=== PATIENT | male | born 1955 | race Caucasian/White ===

== ENCOUNTER 2017-06-10 12:41 | Inpatient (IN) | payer BC ==
[~2017-06-10] VITALS: Ht 170.2 cm; Wt 147.9 kg
[~2017-06-10 12:41] MED LIST: ACETAMINOPHEN-1 EAC3 PO; ACETAMINOPHEN325 M1; AMARYL4 MG PO; ASPIRIN EC325 M1 PO; ASPIRIN325 PO; CLONIDINE HCL0.3 M2 PO; CRESTOR20 MG PO; EFFIENT10 MG PO; ENOXAPARIN30 MG/0.3; EXFORGE PO; FAMOTIDINE PO; FISH OIL 1,0001 EAC5 PO; FLEXERIL PO; FUROSEMIDE 80 M80 M1 PO; GLUCOPHAGE1000 MG PO; HUMALOG MI100 UNIT/3 SQ; HYDROCODON-ACE1 EA11 PO; HYDROCODON-ACE1 EAC7; IBUPROFEN 800800 MG PO; K-DUR 20 MEQ T20 MEQ PO; LEVEMIR; LOVENOX SQ; MEDROL DOSPAK21 TA1 PO; METAMUCIL PAC1 UDPK1; MIRALAX255 GM; MOM; MULTIVITAMINS PO; NIASPAN ER 101000 M1 PO; NOVOLOG100 UNIT/1; OXYCODONE HCL5 M1; POTASSIUM; SPIRONOLACTONE25 M1 PO; TOPROL XL100 MG PO; TOPROL XL50 MG PO; VISTARIL 25 MG25 M1 PO; [UNRECOGNIZED DRUG - REMARK]
[2017-06-10] MEDS ORDERED: NORCO 5-325 TA1 EACH PO (12:53)
[2017-06-10] MEDS ORDERED: SENNA8.6 MG PO (12:55)
[2017-06-10] MEDS ORDERED: TYLENOL PM EX-1 EACH PO (12:57)
[2017-06-10] MEDS ORDERED: LIPITOR80 MG PO (13:02)
[2017-06-10] MEDS ORDERED: COREG25 MG PO (13:03)
[2017-06-10] MEDS ORDERED: FARXIGA10 MG PO (13:05)
[2017-06-10] MEDS ORDERED: CARDIZEM CD240 MG PO (13:28)
[2017-06-10] MEDS ORDERED: TRULICITY1.5 MG/0.5 SUBQ (13:30)
[2017-06-10] MEDS ORDERED: LASIX 40 MG TAB40 M2 PO (13:31)
[2017-06-10] MEDS ORDERED: [UNRECOGNIZED DRUG - OTHER] SUBQ (13:37)
[2017-06-10] MEDS ORDERED: TRESIBA FL100 UNIT/1 SUBQ (13:39)
[2017-06-10] MEDS ORDERED: HUMULINR100 SUBQ (13:44)
[2017-06-10] MEDS ORDERED: METOLAZONE 2.52.5 M1 PO (13:49)
[2017-06-10] MEDS ORDERED: CENTRUM SILVER1 EAC2 PO (13:50)
[2017-06-10] MEDS ORDERED: [UNRECOGNIZED DRUG - CODE] PO (13:53)
[2017-06-10] MEDS ORDERED: OMEGA-31000 M1 PO (13:54)
[2017-06-10] MEDS ORDERED: POTASSIUM20 PO (13:56)
[2017-06-10] MEDS ORDERED: XARELTO20 MG PO (14:00)
[2017-06-10] MEDS ORDERED: ENTRESTO 49 MG1 EACH PO (14:02)
[2017-06-10 14:54] VITALS: BP 121/64
[2017-06-10 20:08] VITALS: BP 101/63
[2017-06-11 05:17] LABS: HEMATOCRIT 38.2 % (42.0-52.0); HEMOGLOBIN 12.8 gm/dL (14.0-18.0); MCH 29.8 pg (26.0-34.0); MCHC 33.6 g/dL (28.0-37.0); MCV 88.6 fL (80.0-100.0); MPV 9.9 fl. (7.2-11.1); RBC 4.31 mil/uL (4.50-6.00); RDW-CV 16.5 % (10.5-14.5); WBC 6.3 thou/uL (4.0-11.0)
[2017-06-11 05:56] LABS: CALCIUM 8.1 mg/dL (8.5-10.1); CREATININE 1.4 mg/dL (0.6-1.3); POTASSIUM 3.8 mmol/L (3.5-5.1)
[2017-06-11 07:30] VITALS: BP 128/73
[2017-06-11 18:03] VITALS: BP 131/56
[2017-06-11 20:00] VITALS: BP 123/71
[2017-06-12 07:53] VITALS: BP 126/71
[2017-06-12 16:51] VITALS: BP 131/60
[2017-06-12 20:00] VITALS: BP 116/58
[2017-06-13 07:30] VITALS: BP 122/49
[2017-06-13 21:01] VITALS: BP 97/55
[2017-06-14 08:25] VITALS: BP 107/74
[2017-06-14 20:57] VITALS: BP 125/60
[2017-06-15 08:18] VITALS: BP 142/68
[2017-06-15 08:21] VITALS: BP 142/68
[2017-06-15 20:00] VITALS: BP 143/62
[2017-06-16 08:34] VITALS: BP 134/66
[2017-06-16 20:04] VITALS: BP 136/60
[2017-06-17 07:51] VITALS: BP 121/62
[2017-06-17 20:04] VITALS: BP 117/59
[2017-06-18 07:46] VITALS: BP 118/57
[2017-06-18 20:12] VITALS: BP 121/63
[2017-06-19 05:06] LABS: HEMOGLOBIN 12.1 gm/dL (14.0-18.0); MCH 29.9 pg (26.0-34.0); MCHC 32.8 g/dL (28.0-37.0); MCV 90.9 fL (80.0-100.0); MPV 9.2 fl. (7.2-11.1); RBC 4.06 mil/uL (4.50-6.00); RDW-CV 16.7 % (10.5-14.5); WBC 5.2 thou/uL (4.0-11.0)
[2017-06-19 05:21] LABS: CREATININE 1.5 mg/dL (0.6-1.3); MAGNESIUM 2.3 mg/dL (1.8-2.4); POTASSIUM 3.9 mmol/L (3.5-5.1)
[2017-06-19 07:30] VITALS: BP 146/72
[2017-06-19 17:14] VITALS: BP 151/70
[2017-06-19 20:09] VITALS: BP 146/80
[2017-06-20 07:55] VITALS: BP 146/77
[2017-06-20 10:54] VITALS: BP 146/77
[2017-06-20] MEDS ORDERED: ENTRESTO 97 MG1 EACH PO (13:41)
[2017-06-20 14:59] VITALS: BP 146/77
[2017-06-20 16:00] VITALS: BP 146/77
--- NOTE | 2017-07-12 13:45 | H ---
[place] [address] HISTORY AND PHYSICAL Name: LEONORA HERNANDEZ Room: [address] M.R.#: [id number] Admission: 06/10/17 Attend Phys: Елена Colbert DO Discharge: 06/20/17 Date of : 51 Report #: [id number] THIS REPORT FOR: //name// CC: Елена Evansriquez DATE OF SERVICE: 06/10/2017 HISTORY OF PRESENT ILLNESS: This is a 61-year-old male who presented to the Emergency Room at the [facility] in [place], [place], status post fall on the ice on to his left side on 06/04/2017. He was unable to bear weight and found to have a left distal periprosthetic femur fracture with history of bilateral total knee replacements. The femur was displaced. Postoperative, he did have some shortness of air. He does have uncontrolled diabetes with a random glucose of 187. He also has an anemia with a hemoglobin of 11.5. His has got morbid obesity with his BMI at 54.2. He has also SUKHJINDER, using CPAP; atrial fibrillation; chronic kidney disease; CHF; and coronary artery disease. His previous level of function was independent with all activities of daily living. His current level of function is minimum to maximum assistance of 1-2 depending on therapy, activity and time of day. He is currently going 50 feet with front-wheeled walker at min assist with toe touch weightbearing on the left side. His comprehension, expression, social interaction, and problem solving are all within normal limits. No significant changes since the preadmission screening. Estimated length of stay is 10-12 days with discharge disposition to the home setting where he lives in a 2 level house, everything is available on the first floor. His spouse is in good health, can help with supervision and minimal assistance. He will likely need PT, OT and detention health. PAST MEDICAL HISTORY: Hypertension; ORAL; diabetes, uncontrolled; morbid obesity with a BMI of 54.2; SUKHJINDER; anemia; congestive heart failure; and coronary artery disease. PAST SURGICAL HISTORY: Appendectomy, bilateral total knee replacements and hernia repair. ALLERGIES: No known drug allergies. MEDICATIONS: Reviewed and reconciled by myself and are available in the MAR. The only change was to increase his Vicodin from 1 every 4 hours to 1-2 every 4 hours as needed for pain in anticipation of 3 hours of therapy. FAMILY HISTORY: Diabetes and heart disease. SOCIAL HISTORY: No tobacco, alcohol [place] [address] HISTORY AND PHYSICAL Name: LEONORA HERNANDEZ Room: [address] IN [facility].#: [id number] Admission: 06/10/17 Attend Phys: Елена Colbert DO Discharge: 06/20/17 Date of : 51 Report #: [id number] REVIEW OF SYSTEMS: A 14-point review of systems is done today, is negative except as mentioned in HPI. Specifically no fever, chest pain, shortness of breath, abdominal pain or distention, change in bowel or change in bladder. PHYSICAL EXAMINATION: GENERAL: Alert, oriented, no apparent distress. VITAL SIGNS: Reviewed and are stable. HEENT: Head atraumatic, normocephalic. Pupils equal, round, reactive. NECK: Within normal limits. LUNGS: Symmetric . ABDOMEN: Obese. MUSCULOSKELETAL: No clubbing, cyanosis or edema. SKIN: Warm and dry. He does have a little bit of edema. Incision is not visualized at this time. NEUROLOGIC: 5/5 strength in the bilateral upper extremities and bilateral lower extremities, although it is painful for him to lift his left leg. ASSESSMENT: 1. Status post left femur fracture. 2. Uncontrolled diabetes. 3. Multiple medical comorbidities requiring daily medical care including hypertension, obstructive sleep apnea, atrial fibrillation, congestive heart failure and coronary artery disease. PLAN: 1. Admission to inpatient rehabilitation to facilitate safe discharge home. 2. PT, OT, speech, language, case management, nursing and HIMS to make evaluations and recommendations. 3. ADA 2200 calorie diet. 4. CBC and BMP in the a.m. 5. Left lower extremity toe touch weightbearing only. 6. Medication reconciliation was completed. 7. Plan of care is pending and we will team him weekly. <ELECTRONICALLY SIGNED> By: Елена Colbert DO 07/12/17 1345 1335 [id number] Colbert DO /nt
--- NOTE | 2017-07-12 13:45 | PLAN ---
[address] [address] REHAB UNIT PLAN OF CARE Name: MARYLEONORA MAYO Room: [address] IN .R.#: [id number] Admission: 06/10/17 Attend Phys: Елена Colbert DO Discharge: 06/20/17 Date of : 51 Report #: [id number] THIS REPORT FOR: //name// CC: Елена Givens HISTORY OF PRESENT ILLNESS: This is a 61-year-old male admitted to inpatient rehabilitation to facilitate safe discharge home, status post left femur fracture with left ORIF on 06/07/2017 after he had a fall from standing height with a periprosthetic femur fracture. He is currently toe touch weightbearing on the left lower extremity. He had some shortness of air in the postoperative period and is medically complex in that he is morbidly obese with a BMI of 54 and uncontrolled diabetes with hypertension, atrial fibrillation and SUKHJINDER. His previous level of function was independent with all activities of daily living. His current level of function is [id number] assistance depending on therapy, activity and time of day. He has needs in physical and occupational therapy. His cognitive evaluation was within normal limits. MEDICAL PROGNOSIS: Good. REHABILITATION PROGNOSIS: Good. Estimated length of stay is 12-14 days with discharge disposition to the home setting where he has a spouse that can provide some supervision and minimal assistance. They live in a home where everything is available on the first level. There are 5 steps to enter. Physical therapy will see the patient 60-90 minutes per day, 5 days per week, working on upper and lower body strength, balance, coordination, navigation while maintaining toe-touch weightbearing on the left lower extremity. Occupational therapy will work with the patient 60-90 minutes per day, 5 days per week, working on upper and lower body strength, balance, coordination, navigation, bathing, dressing, and toileting while maintaining toe-touch weightbearing on the left lower extremity. This is an overall plan of care, may change from time to time. We will team him weekly and make changes to plan of care as needed. <ELECTRONICALLY SIGNED> By: Елена Colbert DO 07/12/17 1345 1350 [id number] Colbert DO /nt
--- NOTE | 2017-08-01 14:42 | D ---
[address] [address] DISCHARGE SUMMARY Name: LEONORA HERNANDEZ Room: [address] IN M.R.#: [id number] Admission: 06/10/17 Attend Phys: Елена Colbert DO Discharge: 06/20/17 Date of : 51 Report #: [id number] THIS REPORT FOR: //name// CC: Елена Proctorquez DATE OF SERVICE: 06/20/2017 DISCHARGE DIAGNOSES: Left femur fracture with multiple medical comorbidities including uncontrolled diabetes. DISCHARGE DISPOSITION: To home with home health, PT, OT and nursing. Medications were reviewed, reconciled by myself and are available in the MAR. The patient did present to rehab with a periprosthetic hip fracture, was participating in physical and occupational therapy, progressing towards goals, did participate in modified independent level of care prior to discharge to the home setting. The patient will follow with Orthopedic Surgery within 1-2 weeks and primary care physician within one week. Medications were reviewed, reconciled by myself and are available in the MAR. Any prescriptions needed were given for one month's time with no refills. He will maintain a regular diet. DISCHARGE PHYSICAL EXAMINATION: GENERAL: Alert, oriented, no apparent distress. VITAL SIGNS: Reviewed and are stable. HEENT: Head atraumatic, normocephalic. Pupils equal, round, reactive. ABDOMEN: Soft, nontender, nondistended. NEUROLOGIC: Cranial nerves 2-12 are grossly intact with no focal neuro deficits, 5/5 strength in bilateral upper and lower extremities. SKIN: Warm and dry. No rashes or lesions noted. <ELECTRONICALLY SIGNED> By: Елена Colbert DO 08/01/17 1442 1332 [id number] Colbert DO /nt
== END 2017-06-20 16:00 | disposition home health service (06) | DRG 534 ==
LOC: M.REH 12:41
PROVIDERS: Family Medicine; ADMIT Physical Medicine & Rehabilitation
DX: S72.402A Unspecified fracture of lower end of left femur, initial encounter for closed fracture (principal); M97.02XA Periprosthetic fracture around internal prosthetic left hip joint, initial encounter; Z68.43 Body mass index [BMI] 50.0-59.9, adult; I13.0 Hypertensive heart and chronic kidney disease with heart failure and stage 1 through stage 4 chronic kidney disease, or unspecified chronic kidney disease; E11.65 Type 2 diabetes mellitus with hyperglycemia; D64.9 Anemia, unspecified; E66.01 Morbid (severe) obesity due to excess calories; G47.33 Obstructive sleep apnea (adult) (pediatric); I48.91 Unspecified atrial fibrillation; N18.9 Chronic kidney disease, unspecified; I50.9 Heart failure, unspecified; I25.10 Atherosclerotic heart disease of native coronary artery without angina pectoris; E11.22 Type 2 diabetes mellitus with diabetic chronic kidney disease; M19.90 Unspecified osteoarthritis, unspecified site; Z96.653 Presence of artificial knee joint, bilateral; Z90.49 Acquired absence of other specified parts of digestive tract; Z88.6 Allergy status to analgesic agent; Z79.4 Long term (current) use of insulin; Z79.899 Other long term (current) drug therapy; Z95.5 Presence of coronary angioplasty implant and graft; Z87.442 Personal history of urinary calculi; W00.0XXA Fall on same level due to ice and snow, initial encounter; Y93.89 Activity, other specified; Y92.89 Other specified places as the place of occurrence of the external cause; Y99.8 Other external cause status; Z83.3 Family history of diabetes mellitus; Z82.49 Family history of ischemic heart disease and other diseases of the circulatory system

== ENCOUNTER → 2017-11-13 | Outpatient (CLI) | payer BC ==
[~2017-11-13] MED LIST changes: +CARDIZEM CD240 MG PO; +CENTRUM SILVER1 EAC2 PO; +COREG25 MG PO; +ENTRESTO 49 MG1 EACH PO; +ENTRESTO 97 MG1 EACH PO; +FARXIGA10 MG PO; +HUMULINR100 SUBQ; +LASIX 40 MG TAB40 M2 PO; +LIPITOR80 MG PO; +METOLAZONE 2.52.5 M1 PO; +NORCO 5-325 TA1 EACH PO; +OMEGA-31000 M1 PO; +POTASSIUM20 PO; +SENNA8.6 MG PO; +TRESIBA FL100 UNIT/1 SUBQ; +TRULICITY1.5 MG/0.5 SUBQ; +TYLENOL PM EX-1 EACH PO; +XARELTO20 MG PO; +[UNRECOGNIZED DRUG - CODE] PO; +[UNRECOGNIZED DRUG - OTHER] SUBQ
[2017-11-13 08:15] LABS: HEMATOCRIT 48.1 % (42.0-52.0); HEMOGLOBIN 16.1 gm/dL (14.0-18.0); MCH 29.8 pg (26.0-34.0); MCHC 33.5 g/dL (28.0-37.0); MCV 89.2 fL (80.0-100.0); MPV 10.1 fl. (7.2-11.1); RBC 5.39 mil/uL (4.50-6.00); RDW-CV 16.5 % (10.5-14.5); WBC 6.9 thou/uL (4.0-11.0)
[2017-11-13 08:28] LABS: ANION GAP 14 mmol/L (7-16)
[2017-11-13 08:30] LABS: ALBUMIN 3.5 g/dL (3.4-5.0); BUN 35 mg/dL (7-18); CALCIUM 9.1 mg/dL (8.5-10.1); CHLORIDE 105 mmol/L (98-107); CHOLESTEROL 179 mg/dL (<200); CO2 23 mmol/L (21-32); CREATININE 1.5 mg/dL (0.6-1.3); GLUCOSE 141 mg/dL (70-99); HDL CHOLESTEROL 43 mg/dL (>40); LDL CHOLESTEROL 107 mg/dL (<100); PHOSPHORUS* 4.1 mg/dL (2.5-4.9); SODIUM 142 mmol/L (136-145); TC:HDL 4.2 Ratio (Not establshd); TRIGLYCERIDE 147 mg/dL (<150); VLDL 29 mg/dL (<40)
[2017-11-13 08:32] LABS: SERUM ASSESSMENT Clear
== END ==
LOC: M.LAB 07:49
PROVIDERS: Internal Medicine
DX: E11.22 Type 2 diabetes mellitus with diabetic chronic kidney disease (principal); I42.8 Other cardiomyopathies

== ENCOUNTER → 2017-11-24 | Outpatient (CLI) | payer BC | LOC: M.WC 07:30 | DX: E11.622 Type 2 diabetes mellitus with other skin ulcer (principal); I87.312 Chronic venous hypertension (idiopathic) with ulcer of left lower extremity; L97.821 Non-pressure chronic ulcer of other part of left lower leg limited to breakdown of skin; E11.65 Type 2 diabetes mellitus with hyperglycemia; I89.0 Lymphedema, not elsewhere classified; I11.0 Hypertensive heart disease with heart failure; I50.22 Chronic systolic (congestive) heart failure; I25.10 Atherosclerotic heart disease of native coronary artery without angina pectoris; I48.2 Chronic atrial fibrillation; E78.2 Mixed hyperlipidemia; E66.9 Obesity, unspecified; G47.33 Obstructive sleep apnea (adult) (pediatric); Z96.651 Presence of right artificial knee joint; Z68.42 Body mass index [BMI] 45.0-49.9, adult ==

== ENCOUNTER → 2017-12-01 | Outpatient (CLI) | payer BC ==
[2017-12-01 07:51] LABS: CREATININE 1.7 mg/dL (0.6-1.3); POTASSIUM 3.8 mmol/L (3.5-5.1)
== END ==
LOC: M.LAB 07:00
PROVIDERS: Nurse Practitioner
DX: I42.8 Other cardiomyopathies (principal); N18.9 Chronic kidney disease, unspecified

== ENCOUNTER → 2017-12-01 | Outpatient (CLI) | payer BC | LOC: M.WC 04:36 | DX: E11.622 Type 2 diabetes mellitus with other skin ulcer (principal); I87.312 Chronic venous hypertension (idiopathic) with ulcer of left lower extremity; L97.821 Non-pressure chronic ulcer of other part of left lower leg limited to breakdown of skin; I89.0 Lymphedema, not elsewhere classified; I11.0 Hypertensive heart disease with heart failure; I50.22 Chronic systolic (congestive) heart failure; I25.10 Atherosclerotic heart disease of native coronary artery without angina pectoris; I48.2 Chronic atrial fibrillation; E78.2 Mixed hyperlipidemia; G47.33 Obstructive sleep apnea (adult) (pediatric) ==

== ENCOUNTER → 2017-12-07 | Outpatient (CLI) | payer BC | LOC: M.WC 03:46 | DX: L97.821 Non-pressure chronic ulcer of other part of left lower leg limited to breakdown of skin (principal); I11.0 Hypertensive heart disease with heart failure; I50.22 Chronic systolic (congestive) heart failure; I25.10 Atherosclerotic heart disease of native coronary artery without angina pectoris; I48.2 Chronic atrial fibrillation; E78.2 Mixed hyperlipidemia; G47.33 Obstructive sleep apnea (adult) (pediatric); I48.92 Unspecified atrial flutter; Z96.651 Presence of right artificial knee joint; Z68.42 Body mass index [BMI] 45.0-49.9, adult ==